=== PATIENT | male | born 1980 | race Caucasian/White ===

== ENCOUNTER 2022-07-24 03:20 | Outpatient (CLI) | payer OTHER, SELFPAY ==
[2022-07-24 07:58] LABS: Hemoglobin A1C 5.3 % (<5.7)
[2022-07-24 08:12] LABS: CREATININE 1.2 mg/dL (0.70-1.30); Calculated LDL 145 mg/dL (<100); Cholesterol 210 mg/dL (<200); Estimated GFR 76.48 (mL/min/1.73m2); HDL Cholesterol 49 mg/dL (40-60); Triglyceride 84 mg/dL (<150)
== END 2022-07-24 03:21 | disposition home or self-care (01) ==
LOC: LBO 03:20
PROVIDERS: PCP Nurse Practitioner Family; Visit Provider Nurse Practitioner Family
DX: I10 Essential (primary) hypertension (principal); Z13.220 Encounter for screening for lipoid disorders; Z13.1 Encounter for screening for diabetes mellitus
CPT/HCPCS: 36415; 80061; 82565; 83036

== ENCOUNTER 2024-09-04 10:01 | Emergency (ER) | payer OTHER, SELFPAY ==
[2024-09-04 10:13] VITALS: BP 147/97; PULSE 50; RESP 16; TEMP 36.4; O2SAT 98
[2024-09-04 11:11] LABS: Abs Immature Grans 0.01 10^3/uL (0.0-0.06); Absolute Basophil Count 0.04 10^3/uL (0.0-0.2); Absolute Lymphocyte Count 2.28 10^3/uL (1.2-3.4); Absolute Monocyte Count 0.73 10^3/uL (0.1-0.8); Absolute Neutrophil Count 3.63 10^3/uL (1.2-6.7); Basophils % 0.6 %; Eosinophils % 1.5 %; HCT 49.1 % (40.0-50.0); Immature Grans % 0.1 %; Lymphocytes % 33.6 %; MCH 31.8 pg (27.0-33.0); MCHC 34.6 % (32.0-36.0); MCV 92 fL (80-95); MPV 10.1 fL (8.0-11.0); Monocytes % 10.8 %; Neutrophils % 53.4 %; Platelet Count 252 10^3/uL (130-400); RBC 5.35 10^6/uL (4.36-5.78); RDW 12.7 % (11.8-14.1); RDW-SD 42.6 fL; WBC 6.79 10^3/uL (4.4-10.8)
[2024-09-04 11:26] LABS: ALT 25 U/L (16-63); AST 18 U/L (15-37); Albumin 4.4 g/dL (3.4-5.0); Alkaline Phosphatase 74 U/L (46-116); Anion Gap 12.2 mmol/L (3-11); BUN 13 mg/dL (7-18); Bilirubin, Total 0.82 mg/dL (0.2-1.0); CO2 26.8 mmol/L (21.0-32.0); CREATININE 1.2 mg/dL (0.70-1.30); Calcium 9.8 mg/dL (8.5-10.1); Chloride 104 mmol/L (98-107); Estimated GFR 75.53 (mL/min/1.73m2); Glucose 102 mg/dL (74-106); Lipase 35 U/L (16-77); Magnesium 1.9 mg/dL (1.8-2.4); Sodium 143 mmol/L (136-145); Total Protein 8.3 g/dL (6.4-8.2)
--- NOTE | 2024-09-04 12:06 | W.ED.GENAD ---
Discharge Plan Disposition Patient Disposition: Home Condition: Stable Discharge Details Clinical Impression: Nausea & vomiting, Increased anion gap metabolic acidosis Primary Care Provider: Bean Clay ED Provider: Josh Briones Home Meds and New Rx's Prescriptions: New ondansetron 4 mg tablet,disintegrating 4 mg PO Q8H PRNQty: 14 0RF Discharge Instructions Instructions: Nausea and Vomiting, Adult ED Additional Instructions: Blood work today revealed mild anion gap acidosis. Please be sure to stay well-hydrated throughout the day. Rehydrate today as discussed. Please follow-up with primary care physician. Be sure to discuss results today. Return to the ER immediately for any worsening or new concerning symptoms. Referrals: Bean Clay, MARINE TECHNICIAN [Primary Care Provider] - Discharge Data Discharge Date/Time-TO BE ENTERED AT DEPARTURE: 09/04/24 12:43 HPI General Mode of arrival: ambulatory. Date/Time Provider Initiated Documentation: 09/04/24 10:12. Limitations to Documentation: no limitations. Information obtained by: patient. HPI Narrative: 44-year-old male presents with chief complaint of nausea and vomiting. Patient notes over approximately the past 2 months he wakes up in the morning with abdominal discomfort, feels bloated and experiences nausea and vomiting. This happens almost daily. As the day progresses symptoms do improve. He has had decreased appetite recently he also notes some loose stools. He has no abdominal pain at this time. Related Data Home Medications ?Medication ?Instructions ?Recorded ?Confirmed ondansetron 4 mg disintegrating 4 mg PO Q8H PRN #14 tabs 09/04/24 09/07/24 tablet Previous Rx's ?Medication ?Instructions ?Recorded ondansetron 4 mg disintegrating 4 mg PO Q8H PRN #14 tabs 09/04/24 tablet Allergies Allergy/AdvReac Type Severity Reaction Status Date / Time No Known Allergies Allergy Unverified 09/07/24 13:58 General Stated Complaint: Abd Prob LALA: 3 Review of Systems All systems reviewed & are unremarkable except as noted in HPI and below Constitutional Constitutional: Denies fever(s) Gastrointestinal Gastrointestinal: Reports as per HPI Exam Const General: cooperative and no acute distress HENMT Mouth: moist mucous membranes Eyes Conjunctivae: normal conjunctivae Sclera: normal sclerae Neck Neck: trachea midline and supple Resp Auscultation: clear to auscultation bilaterally, no rales, no rhonchi and no wheezes Cardio Rate: regular rate and not tachycardic Rhythm: regular rhythm GI Palpation: soft, not firm, no guarding, no masses, not rigid and nontender Skin General skin exam: no rashes or lesions noted Neuro General: patient alert, patient awake, patient oriented x3 and tone normal Extrem General: no edema Psych Appearance: grossly normal Mental Status: mental status grossly normal Speech and Movement: speech and movement normal Course Vital Signs Vital signs: Vital Signs Temperature 36.4 C 09/04/24 10:13 Pulse 50 L 09/04/24 10:13 Respiratory Rate 16 09/04/24 10:13 Blood Pressure 147/97 H 09/04/24 10:13 Pulse Oximetry 98 09/04/24 10:13 Temperature 36.4 C 09/04/24 10:13 Pulse 50 L 09/04/24 10:13 Respiratory Rate 16 09/04/24 10:13 Respiratory Effort Normal 09/04/24 10:19 Blood Pressure 147/97 H 09/04/24 10:13 Pulse Oximetry 98 09/04/24 10:13 Pain Level 0 09/04/24 10:29 Comment tight, bloated abd when it happens 09/04/24 10:13 Lab/Test Results Lab/Test Results: Laboratory Tests Range/Units 09/04/24 10:54 WBC (4.4-10.8) 10^3/uL 6.79 RBC (4.36-5.78) 10^6/uL 5.35 Hgb (13.5-17.5) g/dL 17.0 Hct (40.0-50.0) % 49.1 MCV (80-95) fL 92 MCH (27.0-33.0) pg 31.8 MCHC (32.0-36.0) % 34.6 RDW (11.8-14.1) % 12.7 Plt Count (130-400) 10^3/uL 252 MPV (8.0-11.0) fL 10.1 Immature Gran % % 0.1 Neutrophils % % 53.4 Lymphocytes % % 33.6 Monocytes % % 10.8 Eosinophils % % 1.5 Basophils % % 0.6 Nucleated RBC % (0.0-0.3) % 0.0 Absolute Neutrophils (1.2-6.7) 10^3/uL 3.63 Absolute Lymphocytes (1.2-3.4) 10^3/uL 2.28 Absolute Monocytes (0.1-0.8) 10^3/uL 0.73 Absolute Eosinophils (0.0-0.7) 10^3/uL 0.10 Absolute Basophils (0.0-0.2) 10^3/uL 0.04 Sodium (136-145) mmol/L 143 Potassium (3.5-5.1) mmol/L 4.0 Chloride (98-107) mmol/L 104 Carbon Dioxide (21.0-32.0) mmol/L 26.8 Anion Gap (3-11) mmol/L 12.2 H BUN (7-18) mg/dL 13 Creatinine (0.70-1.30) mg/dL 1.2 Est GFR (CKD-EPI 2020) (mL/min/1.73m2) 75.53 Glucose (74-106) mg/dL 102 Calcium (8.5-10.1) mg/dL 9.8 Magnesium (1.8-2.4) mg/dL 1.9 Total Bilirubin (0.2-1.0) mg/dL 0.82 AST (15-37) U/L 18 ALT (16-63) U/L 25 Alkaline Phosphatase (46-116) U/L 74 Total Protein (6.4-8.2) g/dL 8.3 H Albumin (3.4-5.0) g/dL 4.4 Lipase (16-77) U/L 35 Medical Decision Making 44-year-old male here today with approximately 2 months of abdominal discomfort, bloating, nausea and vomiting that is worse in the morning and occurs almost daily. Symptoms do seem to improve over the course of the day. He has had some loose stool and decreased appetite. Patient is hemodynamically stable. His abdominal exam is benign. Screening labs were performed to assess for hepatic or biliary disease and/or electrolyte abnormality. Labs reviewed: Anion gap acidosis noted. Plan for oral rehydration. Plan for discharge with close outpatient follow-up with PCP. Patient should have screening colonoscopy. Usual and customary discharge instructions were reviewed with the patient. Lab Data Lab results reviewed: Yes I reviewed the patient's lab results. Labs: Laboratory Tests Range/Units 09/04/24 10:54 WBC (4.4-10.8) 10^3/uL 6.79 RBC (4.36-5.78) 10^6/uL 5.35 Hgb (13.5-17.5) g/dL 17.0 Hct (40.0-50.0) % 49.1 MCV (80-95) fL 92 MCH (27.0-33.0) pg 31.8 MCHC (32.0-36.0) % 34.6 RDW (11.8-14.1) % 12.7 Plt Count (130-400) 10^3/uL 252 MPV (8.0-11.0) fL 10.1 Immature Gran % % 0.1 Neutrophils % % 53.4 Lymphocytes % % 33.6 Monocytes % % 10.8 Eosinophils % % 1.5 Basophils % % 0.6 Nucleated RBC % (0.0-0.3) % 0.0 Absolute Neutrophils (1.2-6.7) 10^3/uL 3.63 Absolute Lymphocytes (1.2-3.4) 10^3/uL 2.28 Absolute Monocytes (0.1-0.8) 10^3/uL 0.73 Absolute Eosinophils (0.0-0.7) 10^3/uL 0.10 Absolute Basophils (0.0-0.2) 10^3/uL 0.04 Sodium (136-145) mmol/L 143 Potassium (3.5-5.1) mmol/L 4.0 Chloride (98-107) mmol/L 104 Carbon Dioxide (21.0-32.0) mmol/L 26.8 Anion Gap (3-11) mmol/L 12.2 H BUN (7-18) mg/dL 13 Creatinine (0.70-1.30) mg/dL 1.2 Est GFR (CKD-EPI 2020) (mL/min/1.73m2) 75.53 Glucose (74-106) mg/dL 102 Calcium (8.5-10.1) mg/dL 9.8 Magnesium (1.8-2.4) mg/dL 1.9 Total Bilirubin (0.2-1.0) mg/dL 0.82 AST (15-37) U/L 18 ALT (16-63) U/L 25 Alkaline Phosphatase (46-116) U/L 74 Total Protein (6.4-8.2) g/dL 8.3 H Albumin (3.4-5.0) g/dL 4.4 Lipase (16-77) U/L 35 Quality:SDOH Health Related Social Needs: No Data to Display PFSH All Active Problems (Updated 09/04/24 @ 12:13 by Josh Briones MD) Increased anion gap metabolic acidosis (Acute) Nausea & vomiting (Acute) Insomnia (Acute) Hypertension (Chronic) Surgical History (Updated 07/05/22 @ 13:26 by Bean Clay NP) History of tonsillectomy Family History (Updated 07/06/22 @ 08:48 by Rebel Marlow) Father , age 69 No problems noted. Social History (Updated 07/06/22 @ 10:21 by Rebel Marlow) Smoking/Tobacco Use Status: Never Second Hand Exposure: Yes Smoking risk assessment performed?: Yes Alcohol Intake: current Alcohol Intake frequency: a few times a month Alcohol type: beer Drug use: Daily Substance use type: marijuana Household members: spouse and children Housing: house Communication Needs: None Pets and animals: Yes Pets and animals: cat(s) and dog(s) Sexually active: Yes Do you think of yourself as: straight/heterosexual Current gender identity: male What is your relationship status?: How often do you talk on the phone with friends or family?: three or more times per week How often do you get together with friends or relatives?: three or more times per week How often do you attend bahai or scientologist services?: decline to answer Do you belong to any clubs or organized social groups?: no Panel score (0-1 are the most socially isolated patients): 2 What type of physical activity do you participate in: additional Details: push ups, sit ups Duration: 15-30 minutes/day Frequency: 3-4 times per week Divya/Oriental Orthodox: None Special divya needs: No Seatbelt use: sometimes Drive intox or ride w/intox locomotive driver: No
[2024-09-04 12:38] VITALS: BP 152/91; PULSE 60; RESP 17; TEMP 36.4; O2SAT 99
== END 2024-09-04 12:43 | disposition home or self-care (01) ==
PROVIDERS: Emergency Provider Student in an Organized Health Care Education/Training Program; PCP Nurse Practitioner Family
DX: R11.2 Nausea with vomiting, unspecified; E87.29 Other acidosis; I10 Essential (primary) hypertension
CPT/HCPCS: 36415; 80053; 83690; 99283; 83735; 85025